=== PATIENT | male | born 1930 | race Caucasian/White ===

== ENCOUNTER 2016-07-02 06:08 | Inpatient (IN) | payer MEDICARE ==
[~2016-07-02] VITALS: Ht 177.8 cm; Wt 83.5 kg
[2016-07-02 07:34] LABS: BASOPHILS 0.2 % (0.0-2.0); EOSINOPHILS 0 % (0-7); HEMATOCRIT 35.6 % (42.0-54.0); HEMOGLOBIN 11.5 g/dL (13.5-17.5); IMMATURE GRANULOCYTES 0.2 % (0-5); LYMPHOCYTES 29.2 % (15-50); MCHC 32.3 g/dL (31.0-37.0); MCV 89.7 fL (80.0-100.0); MEAN PLATELET VOLUME 12.4 fL (7.4-10.4); MONOCYTES 21.4 % (2-11); RBC 3.97 10x6/uL (4.20-6.10); RDW 14.1 % (11.5-14.5); WBC 5.8 10x3/uL (4.8-10.8)
[2016-07-02 07:40] LABS: PLATELET COUNT 103 10x3/uL (130-400)
[2016-07-02 08:02] LABS: ALBUMIN 2.8 g/dL (3.4-5.0); ANION GAP 10.2 mmol/L (8-16); BILIRUBIN - TOTAL 0.24 mg/dL (0.2-1.3); CALCIUM 8.1 mg/dL (8.5-10.1); CARBON DIOXIDE 28.2 mmol/L (21.0-32.0); CREATININE - SERUM 1.8 mg/dL (0.6-1.3); POTASSIUM - SERUM 4.4 mmol/L (3.5-5.1); PROTEIN - SERUM 6.6 g/dL (6.4-8.2)
[2016-07-02 08:14] VITALS: BP 124/59; BMI 26.4
[2016-07-02 08:31] LABS: T4 THYROXIN - FREE 1.11 ng/dL (0.76-1.46); THYROID STIMULATING HORMONE 0.51 uIU/mL (0.36-3.74)
[2016-07-02 08:46] VITALS: BP 124/39
[2016-07-02] MEDS ORDERED: COZAAR100 MG PO (08:58)
[2016-07-02] MEDS ORDERED: BAYER CHEWABLE81 MG PO (08:59)
[2016-07-02] MEDS ORDERED: NORVASC2.5 MG PO (09:00)
[2016-07-02] MEDS ORDERED: LEVOXYL100 MCG PO (09:02)
[2016-07-02] MEDS ORDERED: METOPROLOL TART25 MG PO (09:04)
[2016-07-02] MEDS ORDERED: PRAVACHOL20 MG PO (09:04)
[2016-07-02 11:30] VITALS: BP 142/74
[2016-07-02 12:33] LABS: AMORPHOUS SEDIMENT <1+ /lpf (NONE SEEN); APPEARANCE CLEAR (CLEAR); BACTERIA FEW /hpf (NONE SEEN); BILIRUBIN NEGATIVE (NEGATIVE); COLOR YELLOW (YELLOW); EPITHELIAL CELLS 0-5 /hpf (0-5); GLUCOSE NEGATIVE (NEGATIVE); GRANULAR CAST OCC /lpf (NONE SEEN); KETONE NEGATIVE (NEGATIVE); LEUKOCYTE ESTERASE NEGATIVE (NEGATIVE); MUCUS <1+ /lpf (NONE SEEN); NITRITE NEGATIVE (NEGATIVE); PROTEIN 2+ mg/dL (NEGATIVE); RED CELLS - URINE 0-5 /hpf (0-5); UROBILINOGEN NORMAL (NORMAL); WHITE CELLS - URINE OCC /hpf (0-5)
[2016-07-02 13:00] VITALS: Ht 177.8 cm; Wt 83.5 kg
[2016-07-02 16:03] VITALS: BP 118/39
[2016-07-02 22:56] VITALS: BP 140/44
[2016-07-02 23:00] VITALS: BP 147/39
[2016-07-03 05:35] LABS: BASOPHILS 0.2 % (0.0-2.0); EOSINOPHILS 0.3 % (0-7); HEMATOCRIT 34.7 % (42.0-54.0); HEMOGLOBIN 11.4 g/dL (13.5-17.5); IMMATURE GRANULOCYTES 0.2 % (0-5); LYMPHOCYTES 41.6 % (15-50); MCH 29.1 pg (26.0-34.0); MCHC 32.9 g/dL (31.0-37.0); MCV 88.5 fL (80.0-100.0); MONOCYTES 20.6 % (2-11); NEUTROPHILS 37.1 % (40-80); PLATELET COUNT 106 10x3/uL (130-400); RBC 3.92 10x6/uL (4.20-6.10); RDW 14.2 % (11.5-14.5); WBC 6.3 10x3/uL (4.8-10.8)
[2016-07-03 05:57] LABS: ANION GAP 11.4 mmol/L (8-16); CALCIUM 7.7 mg/dL (8.5-10.1); CARBON DIOXIDE 24.8 mmol/L (21.0-32.0); CREATININE - SERUM 1.6 mg/dL (0.6-1.3); POTASSIUM - SERUM 4.2 mmol/L (3.5-5.1)
--- NOTE | 2016-07-03 07:30 | NUR ---
WALKING ROUNDS.ASSESSMENT PER FLOW SHEET.PT WITHOUT DISTRESS.FAMILY AT BEDSIDE.DENIES NAUSEA AND PAIN AT PRESENT.CALL LIGHT IN REACH.MONITOR FOR NEEDS.
[2016-07-03 07:50] VITALS: BP 155/49
--- NOTE | 2016-07-03 08:08 | HP ---
PATIENT: MARY ALVAREZ MEDICAL RECORD: [id number] ACCOUNT: [id number] LOCATION:[id number] : 29 ADMISSION DATE: 07/02/16 HISTORY AND PHYSICAL EXAMINATION REASON FOR ADMISSION: Abdominal pain with diarrhea. HISTORY OF PRESENT ILLNESS: The patient is an 86-year-old male with history of type 2 diabetes mellitus and single-vessel CAD. His daughter states he developed onset of some nausea and diarrhea 3 days prior to admission. He became copious yesterday with nausea and epigastric abdominal pain radiating into his back. He had not taken his oral medicines for diabetes or other for his heart. For this reason, he was direct admitted to the hospital this morning. He had no melena or bright red blood per rectum. He had low-grade fever as well. PAST MEDICAL HISTORY: CAD, post-partial PTCA to the LAD, mitral regurg, trace tricuspid regurg, mild hyperlipidemia, essential hypertension, type 2 diabetes mellitus, ventricular arrhythmias, hypothyroidism, gastroesophageal reflux disease. FAMILY HISTORY: Father at 90 plus years of age from old age. Mother had stomach cancer, at 77. One brother, otherwise living. 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 He is nonsmoker and nondrinker. ALLERGIES: METFORMIN CAUSING ELEVATED CREATININE. OTHER ALLERGIES ARE BYETTA, LISINOPRIL, PNEUMOVAX AND STEROIDS. MEDICATIONS: SoloSTAR 80 units subQ q.a.m., amlodipine 2.5 mg p.o. daily, levothyroxine 100 mcg p.o. daily, pravastatin 20 mg with evening meal, metoprolol tartrate 25 mg p.o. daily, losartan 100 mg daily, gabapentin 100 mg t.i.d. ____ is negative. REVIEW OF SYSTEMS: GENERAL: He looked fatigue with low-grade fever for the last 3-4 days. He has had poor appetite. HEENT: No recent visual change, sinus congestion, or sore throat. RESPIRATORY: No SOB or cough. CARDIAC: No exertional chest pain, claudication or edema. GASTROINTESTINAL: Nausea without vomiting, marked diarrhea. His daughter states over 10 stools yesterday that are watery without bleeding. He admits to abdominal pain in the epigastric area and radiates into his back. GENITOURINARY: Has nocturia once nightly, though he has had decreased volume voiding recently. ENDOCRINE: Denies polyuria, polydipsia, heat or cold intolerance. NEUROLOGIC: No history of stroke, TIA, or vascular headaches. INTEGUMENTARY: No rash or itching. PSYCHIATRIC: Denies depress mood, though he has had somewhat confused. The daughter states since his diarrhea began more intensely yesterday. HISTORY AND PHYSICAL [id number] KIMMARY LAMA Malika POTTS PHYSICAL EXAMINATION: GENERAL: Moderately ill-appearing elderly male, oriented to person and place, but not time. VITAL SIGNS: His temperature is 99.9 degrees Fahrenheit, pulse is 50, respirations 16, blood pressure is 124/39 and sat of 96% on 2 liters. HEENT: Normocephalic. Eyes are clear. Mucous membranes are dry. NECK: Supple. CHEST: Distant breath sounds without wheeze or rales. HEART: Bradycardic with a I/ mitral regurgitation murmur. PMI is not displaced. ABDOMEN: Soft, minimally tender in the epigastrium. No rebound. Bowel sounds were hyperactive. He has diffuse abdominal tenderness 2/10. RECTAL: Deferred. EXTREMITIES: No CC&E. SKIN: No icterus. The skin turgor is poor. NEUROLOGIC: Oriented to person and place, but not time. Motor or sensory is grossly intact. Gait was not tested. Reflexes are symmetrical. LABORATORY DATA: White count of 5800 with 49 neutrophils, 29 lymphs and 21 monocytes. H&H 11.5 and 35.6 with an MCV of 89.7, platelet count of 103,000. Chemistries: He has elevated BUN and creatinine of 27 and 1.8. Electrolytes are normal. CO2 is normal. Glucose is 117. Liver functions are normal. Amylase and lipase are normal. Thyroid functions normal. Urinalysis, specific gravity 1.02, 2+ protein, 1+ blood, 0-5 red and occasional white cells, few bacteria. ASSESSMENT: 1. Acute abdominal pain with leukocytosis. 2. Intravascular volume depletion. 3. Diarrhea. 4. Diabetes mellitus. 5. Hypertension. 6. Bradycardia, etiology unknown. 7. History of coronary artery disease. PLAN: The patient will be admitted for cardiac monitoring, IV fluid replacement. Sliding scale insulin, ____ to take his own medications. Culture blood and urine. We will hold antibiotics at this time. Consider CT abdomen if the pain becomes worse. Stool cultures and CDT testing. TRANSINT:[id number] Voice Confirmation ID: [id number] DOCUMENT ID: [id number] HOWIE STAHL MD at 0808 CC: [id number] DICTATION DATE: 07/02/16 1318 MECHANICAL DEVELOPMENT ENGINEER: 07/02/16 1816 ADM IN [place] [id number] [place] [address]
--- NOTE | 2016-07-03 10:49 | NUR ---
TOLERATED ADA SOFT DIET THIS AM.REMAINS WITHOUT NAUSEA.DENIES NEEDS. AT BEDSIDE.
[2016-07-03 13:01] VITALS: BP 144/47
[2016-07-03] MEDS ORDERED: TOUJEO SOL300 UNIT/1 SC (13:54)
--- NOTE | 2016-07-03 14:24 | NUR ---
Patient Name: MARY ALVAREZ Admission Status: Elective Accout number: [id number] Admission Date: 07-02-2016 : 1930 Admission Diagnosis:UNSPECIFIED ABDOMINAL PAIN Attending: TALYA Current LOS: 1 Anticipated DC Date: 07-03-2016 Planned Disposition: Home or Self Care Primary Insurance: MEDICARE A & B Discharge Planning Comments: CM MET WITH PATIENT AND FAMILY REGARDING D/C NEEDS AND PLANS. DAUGHTER (JAMES) STATED SHE WILL DRIVE HIM HOME TODAY WHEN DISCHARGED. PATIENT HAS NO STEPS OR STAIRS AT HIS HOME PER DAUGHTER. PATIENT IS INDEPENDENT AND HAS NO DME AT HOME. PATIENTS PCP IS DR. STAHL AND PHARMACY IS [facility]. PATIENT AND FAMILY DENIED THE NEED FOR HOME HEALTH OR ANY OTHER NEEDS FOR DISCHARGE TODAY. CM WILL CONTINUE TO FOLLOW PATIENT WITH D/C NEEDS AND PLANS. PCP DR[facility]- [phone] JAMES (DAUGHTER) [phone] AYLEEN (SPOUSE) [phone] Mobile Ui/Ux Designer: Zina Hyunh Is the patient Alert and Oriented? Yes 0 * How many steps to enter\exit or inside your home? 0 0 * PCP DR. STAHL 0 * Pharmacy [facility] 0 * Preadmission Environment Home with Family 0 * ADLs Independent 0 * Equipment None 0 * List name and contact numbers for known caregivers / representatives who currently or will assist patient after discharge: JAMES PEREIRA (DAUGHTER) [phone] AYLEEN (SPOUSE) [phone] 0 * Community resources currently utilized None 0 * Additional services required to return to the preadmission environment? Yes 0 * Can the patient safely return to the preadmission environment? Yes 0 * Has this patient been hospitalized within the prior 30 days at any hospital? No 0 Grand Total: 0
[2016-07-03 15:34] VITALS: BP 138/75
--- NOTE | 2016-07-03 15:48 | NUR ---
DISCHARGE INSTRUCTIONS,STATES NDERSTANDING.IV DCD CATH INTACT.
--- NOTE | 2016-07-03 15:56 | NUR ---
LEFT UNIT VIA WHEELCHAIR FOR TRANSPORT HOME
--- NOTE | 2016-07-05 20:25 | DS ---
PATIENT:MARY ALVAREZ SR :29 MEDICAL RECORD: [id number] DISCHARGE SUMMARY ADMISSION DATE: 07/02/16 DISCHARGE DATE: 07/03/16 DISCHARGE DIAGNOSES: 1. Hylwl-gr-zqujldl renal insufficiency. 2. Dehydration. 3. Diarrhea syndrome. 4. Abdominal pain. 5. Diabetes mellitus type 2. 6. Symptomatic bradycardia. 7. Hypertension. 8. Coronary artery disease. HOSPITAL COURSE: This is a 86-year-old male several day history of nausea and diarrhea. Diarrhea became voluminous. He could not take his oral medication, was lightheaded, confused. He had no bright red blood per rectum or melena. He had a low-grade temperature as well. He was directly admitted to the hospital, placed on IV fluids ____ withheld due to his poor p.o. intake. His temperature is 99.9 on admission, blood pressure 124/39, his pulse was 50. His sats are 96%. He gradually improved with IV fluids. Stools decreased in volume. His white count of 6300 with 20% monocytes that corrected to neutrophils of 37, lymphocytes of 41 and monocytes of 20.6 indicating viral etiology. His H&H was 11 and 34.7. BUN and creatinine improved to 21 and 1.6 prior to discharge. Blood sugars ranged from 111 to 121, on sliding scale insulin. Potassium was 4.2. Urine was concentrated, specific gravity 1.02, 2+ protein, 0-5 epithelial cells, occasional bacteria. Microbiology: His urine revealed a gram-negative violeta, 50,000 units approximately, was pending at discharge. His stool culture, CDT titer, blood cultures were all negative. The patient is improved today. He is having more formed stools and desire to be discharged home. He will be discharged today in improved condition. The patient was also noted to be bradycardic. His metoprolol was withheld, his rate was in the 40s and low 50s. He was mildly symptomatic from standing from this. Therefore, the medication was discontinued in regards to metoprolol. We will have followup his rhythm by outpatient basis. DISCHARGE MEDICATION: Cozaar 100 mg p.o. daily, aspirin 81 mg daily, amlodipine 2.5 mg p.o. daily, levothyroxine 100 mcg p.o. 1 hour before breakfast, pravastatin 20 mg p.o. [facility] units subq q.a.m. We will discontinue metoprolol due to bradycardia. DIET: Diabetic, no added salt. Return to clinic to see me in 10 days with CBC and BMP. TRANSINT:[id number] Voice Confirmation ID: [id number] DOCUMENT ID: [id number] DISCHARGE SUMMARY REPORT [id number] MARY ALVAREZ SR, TIMOTHY MD at 2025 CC: [id number] DICTATION DATE: 07/03/16 1341 FIELD SERVICE TECHNICIAN POULTRY: 07/04/16 0129 DIS IN 07/03/16 [facility] [address] [place] [address]
[2016-07-09 03:09] LABS: OVA + PARASITE EXAM Final report (())
== END 2016-07-03 15:57 | disposition home or self-care (01) | DRG 392 ==
LOC: D.MS 06:08
PROVIDERS: ADMIT Family Medicine
DX: R19.7 Diarrhea, unspecified (principal); R10.9 Unspecified abdominal pain; E86.0 Dehydration; E11.9 Type 2 diabetes mellitus without complications; I10 Essential (primary) hypertension; I25.10 Atherosclerotic heart disease of native coronary artery without angina pectoris; R00.1 Bradycardia, unspecified

== ENCOUNTER → 2018-02-08 14:37 | Outpatient (CLI) | payer MEDICARE ==
[2016-07-02 13:00] VITALS: BMI 26.4
[~2018-02-08 14:37] MED LIST: BAYER CHEWABLE81 MG PO; COZAAR100 MG PO; LEVOXYL100 MCG PO; METOPROLOL TART25 MG PO; NORVASC2.5 MG PO; PRAVACHOL20 MG PO; TOUJEO SOL300 UNIT/1 SC
== END | disposition home or self-care (01) ==
LOC: D.US 14:37
DX: N28.9 Disorder of kidney and ureter, unspecified (principal)